=== PATIENT | female | born 1940 | race Caucasian/White ===

== ENCOUNTER → 2016-04-23 | Outpatient (CLI) | payer MEDICARE, BC ==
[~2016-04-23] MED LIST: ASPIRIN E.C. 8181 MG PO; DOXYCYCLINE100 MG PO; GLUCOPHAGE1000 MG PO; GLUCOPHAGE500 MG/TAB PO; HCTZ 25MG25 MG PO; HCTZ12.5TAB PO; LIPITOR 10MG10 MG PO; ZOFRAN 4MG T4 MG/TAB PO
== END ==
LOC: SUN.DIA 13:30
DX: E11.65 Type 2 diabetes mellitus with hyperglycemia (principal); Z79.84 Long term (current) use of oral hypoglycemic drugs; Z68.30 Body mass index [BMI] 30.0-30.9, adult; Z71.3 Dietary counseling and surveillance; E78.5 Hyperlipidemia, unspecified; I10 Essential (primary) hypertension

== ENCOUNTER 2016-06-28 08:34 | Emergency (ER) | payer MEDICARE, BC ==
[~2016-06-28] VITALS: Ht 165.1 cm; Wt 82.7 kg
[~2016-06-28 08:34] MED LIST changes: -ASPIRIN E.C. 8181 MG PO; -GLUCOPHAGE1000 MG PO; -GLUCOPHAGE500 MG/TAB PO; -HCTZ12.5TAB PO
[2016-06-28 08:35] VITALS: TEMP 97.9
[2016-06-28] MEDS ORDERED: GLUCOPHAGE500 MG/TAB PO (08:44)
[2016-06-28] MEDS ORDERED: GLUCOPHAGE1000 MG PO (08:45)
[2016-06-28] MEDS ORDERED: HCTZ12.5TAB PO (08:46)
[2016-06-28] MEDS ORDERED: ASPIRIN E.C. 8181 MG PO (08:46)
[2016-06-28 09:16] LABS: BASO % 0.8 % (0.0-2.0); EOS # 0.1 (0.0-0.7); EOS % 1.3 % (0-4.0); GRAN # 2.2 (1.4-6.5); GRAN % 55.3 % (42.2-75.2); HEMATOCRIT 39.8 % (37.0-47.0); HEMOGLOBIN 13.4 g/dl (12.5-16.0); LYMPH # 1.3 (1.2-3.4); LYMPH % 33.9 % (20.0-51.0); MEAN CELL VOLUME 91 fl (80.0-100.0); MEAN CORPUSCULAR HEMOGLOBIN 31 pg (27.0-31.0); MEAN CORPUSCULAR HGB CONC 34 g/dl (33.0-37.0); MEAN PLATELET VOLUME 9.4 fl (7.4-10.4); MONO # 0.3 (0.1-0.6); MONO % 8.4 % (1.7-9.3); PLATELET COUNT 194 K/mm3 (130-400); RED BLOOD COUNT 4.38 M/mm3 (4.10-5.30); REDCELL DISTRIBUTION WIDTH-CV 12.9 % (11.5-14.5); WHITE BLOOD COUNT 3.9 K/mm3 (4.8-10.8)
[2016-06-28 09:27] LABS: ADJUSTED CALCIUM 9.8 mg/dL (8.4-10.2); ALANINE AMINOTRANSFERASE 16 U/L (9-52); ALBUMIN 4.1 gm/dL (3.5-5.0); ALKALINE PHOSPHATASE 82 U/L (50-136); ANION GAP 17 mmol/L (7-16); BLOOD UREA NITROGEN 18 mg/dL (7-17); CALCIUM 9.9 mg/dL (8.4-10.2); CARBON DIOXIDE 22 mmol/L (22-30); CHLORIDE 104 mmol/L (98-107); CREATININE, serum 0.68 mg/dL (0.52-1.25); GLUCOSE 119 mg/dL (74-106); POTASSIUM 3.2 mmol/L (3.4-5.0); SODIUM 144 mmol/L (137-145); TOTAL PROTEIN 7.3 gm/dL (6.4-8.2)
[2016-06-28 09:28] LABS: C-REACTIVE PROTEIN < 0.5 mg/dL (0.0-0.9)
[2016-06-28 09:39] LABS: TROPONIN-I < 0.012 ng/mL (0.000-0.034)
[2016-06-28 10:15] VITALS: BP 143/87; PULSE 73
== END 2016-06-28 10:24 | disposition home or self-care (01) ==
LOC: COL.ER 08:34
PROVIDERS: Emergency Medicine
DX: R42 Dizziness and giddiness (principal); E11.9 Type 2 diabetes mellitus without complications; I10 Essential (primary) hypertension; Z79.84 Long term (current) use of oral hypoglycemic drugs
CPT/HCPCS: J2060; J2405; J7030

== ENCOUNTER → 2016-08-07 | Outpatient (CLI) | payer MEDICARE, BC ==
[~2016-08-07] MED LIST changes: +ASPIRIN E.C. 8181 MG PO; +GLUCOPHAGE1000 MG PO; +GLUCOPHAGE500 MG/TAB PO; +HCTZ12.5TAB PO
== END ==
LOC: MC.RAD 13:16
DX: Z12.31 Encounter for screening mammogram for malignant neoplasm of breast (principal)

== ENCOUNTER → 2017-04-25 | Outpatient (CLI) | payer MEDICARE, BC | LOC: COL.VAS 10:45 | DX: I08.1 Rheumatic disorders of both mitral and tricuspid valves (principal) ==

== ENCOUNTER → 2017-10-06 | Outpatient (CLI) | payer MEDICARE, BC | LOC: MC.RAD 10:00 | DX: Z12.31 Encounter for screening mammogram for malignant neoplasm of breast (principal) ==

== ENCOUNTER → 2018-02-18 | Outpatient (CLI) | payer MEDICARE, BC | LOC: COL.VAS 02-16 12:30 | DX: M79.604 Pain in right leg (principal) ==

== ENCOUNTER → 2018-10-02 | Outpatient (CLI) | payer MEDICARE, BC | LOC: COL.RAD 15:00 | DX: Z12.11 Encounter for screening for malignant neoplasm of colon (principal); K57.30 Diverticulosis of large intestine without perforation or abscess without bleeding ==

== ENCOUNTER → 2018-10-20 | Outpatient (CLI) | payer MEDICARE, BC | LOC: MC.RAD 09:20 | DX: Z12.31 Encounter for screening mammogram for malignant neoplasm of breast (principal) ==

== ENCOUNTER → 2019-09-22 | Outpatient (CLI) | payer MEDICARE, BC | LOC: COL.RAD 12:12 | DX: M48.061 Spinal stenosis, lumbar region without neurogenic claudication (principal); M41.86 Other forms of scoliosis, lumbar region; S33.140A Subluxation of L4/L5 lumbar vertebra, initial encounter; S33.39XA Dislocation of other parts of lumbar spine and pelvis, initial encounter; S33.110A Subluxation of L1/L2 lumbar vertebra, initial encounter; S33.120A Subluxation of L2/L3 lumbar vertebra, initial encounter ==

== ENCOUNTER → 2019-12-16 | Outpatient (CLI) | payer MEDICARE, BC | LOC: MC.RAD 09:45 | DX: Z12.31 Encounter for screening mammogram for malignant neoplasm of breast (principal) ==

== ENCOUNTER 2020-04-24 12:31 | Inpatient (IN) | payer MEDICARE, BC ==
[~2020-04-24] VITALS: Ht 165.1 cm; Wt 90.6 kg
[2020-04-24 12:57] LABS: ARTERIAL BLD GAS O2 SATURATION 95.8 % (92-100); ARTERIAL BLD GAS TCO2 CT 26.3; ARTERIAL BLOOD GAS BASE EXCESS 2.8 (-2-2); ARTERIAL BLOOD GAS HCO3 25.3 meq/L (22-26); ARTERIAL BLOOD GAS PCO2 32.7 mmHg (35-45); ARTERIAL BLOOD GAS PO2 80.2 mmHg (80-100); ARTERIAL BLOOD GAS pH 7.51 (7.35-7.45)
[2020-04-24 13:00] LABS: BASO % 0.4 % (0.0-2.0); EOS % 0.2 % (0-4.0); GRAN % 61.9 % (42.2-75.2); HEMATOCRIT 39.1 % (37.0-47.0); HEMOGLOBIN 13.4 g/dl (12.5-16.0); LYMPH # 1.3 (1.2-3.4); LYMPH % 26.4 % (20.0-51.0); MEAN CELL VOLUME 91 fl (80.0-100.0); MEAN CORPUSCULAR HEMOGLOBIN 31 pg (27.0-31.0); MEAN CORPUSCULAR HGB CONC 34 g/dl (33.0-37.0); MEAN PLATELET VOLUME 9.4 fl (7.4-10.4); MONO # 0.5 (0.1-0.6); MONO % 10.5 % (1.7-9.3); PLATELET COUNT 205 K/mm3 (130-400); RED BLOOD COUNT 4.32 M/mm3 (4.10-5.30); REDCELL DISTRIBUTION WIDTH-CV 13.8 % (11.5-14.5)
[2020-04-24 13:12] LABS: ALANINE AMINOTRANSFERASE 22 U/L (4-34); ALKALINE PHOSPHATASE 116 U/L (50-136); ANION GAP 11 mmol/L (7-16); AST,SGOT 37 U/L (15-37); BILIRUBIN,TOTAL 1.1 mg/dL (0.0-1.0); BLOOD UREA NITROGEN 18 mg/dL (7-17); CARBON DIOXIDE 29 mmol/L (22-30); CHLORIDE 95 mmol/L (98-107); CREATINE KINASE 68 U/L (30-135); GLUCOSE 113 mg/dL (74-106); SODIUM 135 mmol/L (137-145); TOTAL PROTEIN 7.2 gm/dL (6.4-8.2)
[2020-04-24 13:18] LABS: POTASSIUM 2.9 mmol/L (3.4-5.0)
[2020-04-24 13:24] LABS: TROPONIN-I < 0.012 ng/mL (0.000-0.035)
[2020-04-24 20:50] VITALS: BP 132/59; PULSE 98; TEMP 98.1
[2020-04-24 21:05] VITALS: BP 137/59; PULSE 98; TEMP 98.1
[2020-04-25] VITALS (7 sets, daily range): BP systolic 118–145; BP diastolic 57–90; PULSE 71–87; TEMP 97.1–97.8
--- NOTE | 2020-04-25 07:45 | NUR ---
Shift assessment complete. Pt denies SOA and pain. Reports mild fatigue, improved since S/S began. Currently on 1L O2 NC with sats stable. Heart RRR, crackles heard over left lower lobes, A&Ox4. 3+ edema to BLE. Pt refuses MARCEL hose and elevation of lower extremities at this time. Incentive spirometer provided and pt educated on use. Denies other needs. Call light in reach.
[2020-04-25 08:03] LABS: HEMOGLOBIN 12.2 g/dl (12.5-16.0); MEAN CELL VOLUME 90 fl (80.0-100.0); MEAN CORPUSCULAR HEMOGLOBIN 31 pg (27.0-31.0); MEAN CORPUSCULAR HGB CONC 35 g/dl (33.0-37.0); MEAN PLATELET VOLUME 10.2 fl (7.4-10.4); PLATELET COUNT 213 K/mm3 (130-400); RED BLOOD COUNT 3.93 M/mm3 (4.10-5.30); REDCELL DISTRIBUTION WIDTH-CV 13.4 % (11.5-14.5)
[2020-04-25 08:09] LABS: HEMATOCRIT 35.3 % (37.0-47.0)
[2020-04-25 08:17] LABS: CALCIUM 8.6 mg/dL (8.4-10.2); CREATININE, serum 0.63 (0.52-1.25); POTASSIUM 3.6 mmol/L (3.4-5.0)
--- NOTE | 2020-04-25 16:26 | NUR ---
Bale Tie Machine Operator, Merrick from the patient's PCP, Dr. Littlejohn contacted this SW. She states that the patient maybe needing some extra help such as home health at at discharge. Merrick faxed over [facility]- paperwork for the patient, placed in the chart. SW contacted the patient via room phone to complete intake. The patient lives alone in [place]. The patient denies DME use and is independent. The patient's PCP is Dr. Littlejohn and [place] [facility] The patient picks up her own medications. The patient plans to return home when he ready. JOSE MANUEL discussed the benefits of home health. She states that her late had home health and she knows about it. She declined home health services at this time. JOSE MANUEL contacted the patient's son, Lori. He states he is agreeable with the patient returning home if she is stable to do so and she wants to. PT/OT ordered.
--- NOTE | 2020-04-25 20:47 | NUR ---
Individual denied pain and or discomfort. VSS. No s/s distress noted.
--- NOTE | 2020-04-25 21:41 | NUR ---
Individual PIV infiltrated. removed and attempted x's 2.
--- NOTE | 2020-04-26 11:19 | NUR ---
PATIENT DID NOT QUALIFY FOR HOME OXYGEN. SP02 IS 94% WHILE AMBULATING ON TOYA AIR.
[2020-04-26 12:17] VITALS: BP 120/61; PULSE 81; TEMP 97.8
--- NOTE | 2020-04-26 12:28 | NUR ---
Pt is currently on RA. Assessment has been completed, and pt should be able to discharge after BMP & CBC is drawn.
[2020-04-26] MEDS ORDERED: OMNICEF 300MG300 MG PO (12:34)
[2020-04-26] MEDS ORDERED: DECADRON6 MG PO (12:35)
[2020-04-26] MEDS ORDERED: DOXYCYCLINE HY100 MG PO (12:35)
[2020-04-26] MEDS ORDERED: LASIX 20MG TABL20 MG PO (12:36)
[2020-04-26 13:46] LABS: BASO % 0.2 % (0.0-2.0); EOS % 0.2 % (0-4.0); GRAN # 3.1 (1.4-6.5); GRAN % 63.4 % (42.2-75.2); HEMATOCRIT 36.7 % (37.0-47.0); HEMOGLOBIN 12.4 g/dl (12.5-16.0); LYMPH # 1.2 (1.2-3.4); LYMPH % 24.2 % (20.0-51.0); MEAN CELL VOLUME 91 fl (80.0-100.0); MEAN CORPUSCULAR HEMOGLOBIN 31 pg (27.0-31.0); MEAN CORPUSCULAR HGB CONC 34 g/dl (33.0-37.0); MEAN PLATELET VOLUME 9.7 fl (7.4-10.4); MONO # 0.6 (0.1-0.6); MONO % 11.4 % (1.7-9.3); PLATELET COUNT 282 K/mm3 (130-400); RED BLOOD COUNT 4.02 M/mm3 (4.10-5.30); REDCELL DISTRIBUTION WIDTH-CV 13.4 % (11.5-14.5)
--- NOTE | 2020-04-26 14:59 | NUR ---
The patient is to discharge home today, 04/26. JOSE MANUEL discussed the benefits of home health and she declined. The patient does not qualify for oxygen. The patient's friend, Korin will provide transporation at discharge. JOSE MANUEL attempted to contact the patient's son, Lori with update, left message. JOSE MANUEL attempted to contact JOSE MANUEL Sin with Dr. Littlejohn's office to provide update, left message. There are no additional needs at this time.
== END 2020-04-26 15:50 | disposition home or self-care (01) | DRG 177 ==
LOC: COL.ER 12:31 → MEDICAL 13:43
PROVIDERS: Emergency Medicine; Physician Assistant; ADMIT Student in an Organized Health Care Education/Training Program
DX: U07.1 COVID-19 (principal); J96.01 Acute respiratory failure with hypoxia; J90 Pleural effusion, not elsewhere classified; E78.5 Hyperlipidemia, unspecified; E87.6 Hypokalemia; M54.30 Sciatica, unspecified side; E11.9 Type 2 diabetes mellitus without complications; I10 Essential (primary) hypertension; Z90.710 Acquired absence of both cervix and uterus; Z90.89 Acquired absence of other organs; Z79.84 Long term (current) use of oral hypoglycemic drugs; Z79.82 Long term (current) use of aspirin
CPT/HCPCS: 99222-AI; 99233-AI; 99239; A9284; J0360; J0696; J1100; J1650; J1815; J7030; J8540; Q9967

== ENCOUNTER → 2020-10-11 | Outpatient (CLI) | payer MEDICARE, BC ==
[~2020-10-11] MED LIST changes: +DECADRON6 MG PO; +DOXYCYCLINE HY100 MG PO; +LASIX 20MG TABL20 MG PO; +OMNICEF 300MG300 MG PO
== END ==
LOC: COL.VAS 13:10
DX: R60.0 Localized edema (principal)

== ENCOUNTER → 2021-01-22 | Outpatient (CLI) | payer MEDICARE, BC | LOC: MC.RAD 10:15 | DX: Z12.31 Encounter for screening mammogram for malignant neoplasm of breast (principal); N63.10 Unspecified lump in the right breast, unspecified quadrant ==

== ENCOUNTER → 2021-01-30 | Outpatient (CLI) | payer MEDICARE, BC | LOC: MC.RAD 01-25 08:30 | DX: N63.10 Unspecified lump in the right breast, unspecified quadrant (principal) ==

== ENCOUNTER 2021-07-24 05:53 | Observation (INO) | payer MEDICARE, BC ==
[~2021-07-24] VITALS: Wt 96.4 kg
[2021-07-24 06:20] LABS: BASO % 0.3 % (0.0-2.0); EOS % 0.3 % (0.0-4.0); GRAN # 6.4 K/mm3 (1.4-6.5); GRAN % 81.3 % (42.2-75.2); HEMATOCRIT 42.7 % (37.0-47.0); HEMOGLOBIN 14.4 g/dl (12.5-16.0); LYMPH # 0.9 K/mm3 (1.2-3.4); LYMPH % 11.8 % (20.0-51.0); MEAN CELL VOLUME 91 fl (80.0-100.0); MEAN CORPUSCULAR HEMOGLOBIN 31 pg (27-31); MEAN CORPUSCULAR HGB CONC 34 g/dl (33.0-37.0); MEAN PLATELET VOLUME 9.1 fl (7.4-10.4); MONO # 0.5 K/mm3 (0.1-0.6); MONO % 5.9 % (1.7-9.3); PLATELET COUNT 213 K/mm3 (130-400); RED BLOOD COUNT 4.67 M/mm3 (4.10-5.30); REDCELL DISTRIBUTION WIDTH-CV 13.4 % (11.5-14.5)
[2021-07-24 06:42] LABS: ALBUMIN 3.8 gm/dL (3.4-4.8); BILIRUBIN,TOTAL 0.8 mg/dL (0.2-1.2); CALCIUM 9.1 mg/dL (8.4-10.2); CREATININE, serum 1.04 mg/dL (0.57-1.11); POTASSIUM 3.7 mmol/L (3.5-4.5)
[2021-07-24 07:50] LABS: COLLECTION METHOD CLEAN CATCH
[2021-07-24 07:56] LABS: MUCOUS Present (NOT PRESENT); PH 6 (5-8); SQUAMOUS EPITHELIAL 0-2 /hpf (0-10); URINE APPEARANCE Hazy (CLEAR/HAZY); URINE BACTERIA None Seen /hpf (NONE SEEN); URINE BILIRUBIN Negative (NEGATIVE); URINE BLOOD 2+ (NEGATIVE); URINE COLOR Yellow (YELLOW); URINE GLUCOSE 1+ (NEGATIVE); URINE KETONE Negative (NEGATIVE); URINE LEUKOCYTE ESTERASE Negative (NEGATIVE); URINE NITRATE Negative (NEGATIVE); URINE PROTEIN(semi-quant) Negative (NEGATIVE); URINE UROBILINOGEN Negative (NEGATIVE)
[2021-07-24] MEDS ORDERED: GLUCOPHAGE500 MG/TAB PO (07:57)
[2021-07-24] MEDS ORDERED: MICROZIDE12.5 MG PO (07:58)
[2021-07-24] MEDS ORDERED: TYLENOL 325MG325 MG PO (07:59)
[2021-07-24] MEDS ORDERED: ADVIL200 MG PO (07:59)
[2021-07-24] MEDS ORDERED: OMEGA-3 1000 MG1 CAP PO (08:00)
[2021-07-24 09:44] VITALS: BP 143/82; PULSE 72; TEMP 98.1
--- NOTE | 2021-07-24 09:49 | NUR ---
Herbicide Sprayer met with patient and her friend, Isi Ochoa to discuss discharge planning. Patient lives alone in [place] and sees Dr. Patricia Littlejohn for primary care. Patient obtains medications from [facility] with no difficulties and does not use any DME. Patient is independent with ADLS and plans to return home at time of discharge. Patient has DPOA-HC in EMR which designates her three sons: Teodoro, Derrek, and Lori after her late , Anand. Patient reports she has notified her sons that she is hospitalized. Discharge Plan: Home
--- NOTE | 2021-07-24 11:00 | NUR ---
PATIENT RECIEVED FROM ED DEPT IN STABLE CONDITION. DEBURRING AND TOOLING MACHINE OPERATOR STARTED PER ORDERS. PATIENT HAS NO COMPLAINTS AT THIS TIME. IND AT HOME AND CAN AMBULATE. ENCOURAGED TO ASK FOR ASSIST WITH THIS. VITALS WNL. AWAITING SURGERY SCHEDULED FOR 6PM TODAY.
[2021-07-24 11:32] VITALS: BP 132/68; PULSE 63; TEMP 98.2
[2021-07-24 15:57] VITALS: BP 134/68; PULSE 70; TEMP 98.1
--- NOTE | 2021-07-24 16:43 | NUR ---
PATIENT TAKEN TO SURGERY IN STABLE CONDITION. PAIN WELL CONTROLLED AT THIS TIME. INORGANIC CHEMICAL TECHNICIAN PUMP DISCONNECTED AND REMAINING NARCOTIC WASTED WITH ANOTHER NURSE.
[2021-07-25] VITALS: BP 133/48; PULSE 83
[2021-07-25 01:09] VITALS: BP 133/48; PULSE 83
[2021-07-25 01:25] VITALS: BP 130/42; PULSE 67; TEMP 98.2
[2021-07-25 04:28] VITALS: BP 130/60; PULSE 62; TEMP 97.4
--- NOTE | 2021-07-25 04:58 | NUR ---
Patient back to the floor at approximately 1845. Postop vitals were WNL and ful body assessment completed. Patients pain has be adequately control thus far this shift. Patient has voided since arrival to the floor. Pt is A&Ox3 and pleasant. No other complaints thus far this shift, call light within reach.
[2021-07-25 07:29] VITALS: BP 120/62; PULSE 63; TEMP 98.1
[2021-07-25 11:17] VITALS: BP 133/50; PULSE 71; TEMP 97.6
--- NOTE | 2021-07-25 14:55 | NUR ---
DISCHARGE INSTRUCTIONS REWVIEWED WITH PT, QUESTIONS ANSWERED. PT LEFT UNIT AMBULATORY.
== END 2021-07-25 15:00 | disposition home or self-care (01) ==
LOC: COL.ER 05:53 → SURG 07:33
PROVIDERS: Emergency Medicine; ADMIT Urology
DX: N20.1 Calculus of ureter (principal)
CPT/HCPCS: C1769; C2617; G0378; J0690; J0696; J1100; J1170; J1200; J1885; J2270; J2405; J2704; J3010; J7030; Q9967

== ENCOUNTER → 2021-08-06 | Outpatient (CLI) | payer MEDICARE, BC ==
[~2021-08-06] MED LIST changes: +ADVIL200 MG PO; +KLOR-CON SPRIN10 MEQ PO; +MICROZIDE12.5 MG PO; +MIRALAX PA17 GM/Dose PO; +MOBIC 7.5MG7.5 MG PO; +MYCELEX10 MG/TAB MM; +NEURONTIN100 MG/CAP PO; +OMEGA-3 1000 MG1 CAP PO; +TYLENOL 325MG325 MG PO
== END ==
LOC: MC.RAD 10:46
DX: N63.10 Unspecified lump in the right breast, unspecified quadrant (principal)

== ENCOUNTER 2021-08-08 13:52 | Inpatient (IN) | payer MEDICARE, BC ==
[~2021-08-08] VITALS: Ht 167.6 cm; Wt 95.5 kg
[2021-08-08] VITALS (9 sets, daily range): BP systolic 133–170; BP diastolic 63–91; PULSE 77–99; TEMP 97.7–98.4
[~2021-08-08 13:52] MED LIST changes: -KLOR-CON SPRIN10 MEQ PO; -MIRALAX PA17 GM/Dose PO; -MOBIC 7.5MG7.5 MG PO; -MYCELEX10 MG/TAB MM; -NEURONTIN100 MG/CAP PO
[2021-08-08] MEDS ORDERED: MOBIC 7.5MG7.5 MG PO (16:16)
--- NOTE | 2021-08-08 21:20 | NUR ---
PT FEELS LIKE SHE IS IN A LOT OF PAIN AND DOES NOT WANT TO GO HOME NOW. ROXICONDONE GIVEN FOR PAIN. VITALS A BIT ELEVATED FROM BEFORE. PLACED ON O2 VIA NC BECAUSE O2 STATS DROPPED INTO HIGH 80'S. I FEEL THAT PT IS HOLDING HER BREATH BECAUSE OF THE PAIN. WILL CONTACT THE PHYSICIAN. WILL CONTINUE TO MONITOR.
[2021-08-09 04:30] VITALS: BP 104/54; PULSE 72; TEMP 97.8
--- NOTE | 2021-08-09 06:30 | NUR ---
PT ARRIVED TO THE MEDICAL FLOOR FROM PACU AT 1935HRS TO ROOM 253. PT A&O X 4; VSS; O2 TO RA (NOTE: A COUPLE OF HOURS LATER PT PLACED ON 3L OF O2 BECAUSE HER O2 STATS DROPPED TO HIGH 80'S). PT DENIED CHEST PAIN, N,V,D, OR DIZZINESS. PT COMPLAINED OF ABD & BACK PAIN. PT GIVEN ROXICODONE FOR PAIN. PAIN MED WAS EFFECTIVE THE FIRST TIME I GIVE MED. THE SECOND TIME I GAVE PAIN MED, PT NEEDED SECOND DOSE ABOUT AN HOUR LATER FOR PAIN RELIEF. PT WENT BACK AND FORTH ABOUT STAYING, AND FINALLY DECIDED TO STAY. ADMISSIONS ASSESSMENT AND MED REC COMPLETE. PT ORIENTED TO ROOM AND HOSPITAL POLICY. POC DISCUSSED WITH PT. PT VERBALIZED UNDERSTANDING. ALL QUESTIONS AND CONCERNS ADDRESSED. PT EXPRESSED NO ADDITIONAL NEEDS AT THIS TIME. CALL LIGHT WITHIN REACH.
[2021-08-09 07:26] VITALS: BP 111/56; PULSE 65; TEMP 97.8
--- NOTE | 2021-08-09 09:24 | NUR ---
Shift assessment performed. VSS. Patient A&O. Patient currently requiring 3L of O2 via nasal cannula. Sating 95%. Patient denies any pain, but states that she is having some nausea. Patient has not eaten since yesterday. PO intake encouraged. Tolerating without vomiting. VSS. Patient A&O. Patient denies any further pain, discomfort, SOA, or further needs at this time. Call light in reach.
--- NOTE | 2021-08-09 10:12 | NUR ---
Initial visit; Patient thanked Public Health Specialist for looking in on her and visiting and offering God's blessings.
--- NOTE | 2021-08-09 10:53 | NUR ---
hatchery worker met with patient to discuss discharge plan. Patient currently lives at home alone in [place]. She reports to being fully independent with his ADL's and does not utilize any DME to assist with mobility. Patient reports to no home oxygen needs. PCP is Dr. Littlejohn and she utilizes [facility] for medications. Patient reports that she does have a DPOA-HC established and that her 3 sons are listed on it. States " all 3 of them have a copy". Patient states that all of her sons have a copy. Patient reports that her son Lori Crouch [phone] is the closest one living to her but is hard to get ahold of. She states that her other son Derrek Crouch [phone] who lives in [place] is much easier to get ahold of. Patient states that her friend Andrés Dowell [phone] is going to pick her up this time but asks about how to set up [employer] as recurring. I informed the patient that i was unaware of [employer] offering this but that i would look into it for her. Benigno has no other questions at this time. Discharge plan: Home
[2021-08-09 11:10] VITALS: BP 122/74; PULSE 83; TEMP 98
--- NOTE | 2021-08-09 13:38 | NUR ---
Patient continues to experience nausea, and has had one episode of emesis. Dr Forbes contacted, who started patient on IV fluids and PRN zofran. Call light in reach.
[2021-08-09 15:56] VITALS: BP 124/59; PULSE 95; TEMP 97.7
--- NOTE | 2021-08-09 19:25 | NUR ---
Patient given 2 doses of zofran this shift. Patient states that this has helped "a little bit." Fluids running as ordered. Patient denies any pain, discomfort, SOA, of further needs at this time. VSS. Patient A&O. Leidy contacted regarding starting patient's home medications. Hospitalist consulted.
[2021-08-09 20:36] LABS: HEMATOCRIT 38.7 % (37.0-47.0); HEMOGLOBIN 13.3 g/dl (12.5-16.0); MEAN CELL VOLUME 90 fl (80.0-100.0); MEAN CORPUSCULAR HEMOGLOBIN 31 pg (27-31); MEAN CORPUSCULAR HGB CONC 34 g/dl (33.0-37.0); MEAN PLATELET VOLUME 9.6 fl (7.4-10.4); PLATELET COUNT 147 K/mm3 (130-400); RED BLOOD COUNT 4.28 M/mm3 (4.10-5.30); REDCELL DISTRIBUTION WIDTH-CV 13.8 % (11.5-14.5)
[2021-08-09 20:40] VITALS: BP 113/53; PULSE 101; TEMP 98.8
[2021-08-09 20:57] LABS: ALBUMIN 3.1 gm/dL (3.4-4.8); ALKALINE PHOSPHATASE 102 U/L (40-150); ANION GAP 12 mmol/L (7-16); AST,SGOT 18 U/L (5-34); BAND 13 % (0-10); BILIRUBIN,TOTAL 1.5 mg/dL (0.2-1.2); BLOOD UREA NITROGEN 22 mg/dL (10-20); CALCIUM 8.6 mg/dL (8.4-10.2); CARBON DIOXIDE 21 mmol/L (23-31); CHLORIDE 103 mmol/L (98-107); CREATININE, serum 1.06 mg/dL (0.57-1.11); GLUCOSE 271 mg/dL (70-99); LYMPHOCYTE 6 % (20.0-51.0); MAGNESIUM 1.6 mg/dL (1.6-2.6); NEUTROPHILS 76 % (42.0-75.2); PHOSPHOROUS 2.4 mg/dL (2.3-4.7); POTASSIUM 3.6 mmol/L (3.5-4.5); SODIUM 136 mmol/L (136-145); TOTAL PROTEIN 6.2 gm/dL (6.2-8.1)
[2021-08-09 20:59] LABS: ALANINE AMINOTRANSFERASE < 6 U/L (0-55)
[2021-08-10 00:23] LABS: COLLECTION METHOD CLEAN CATCH
[2021-08-10 00:24] VITALS: BP 138/60; PULSE 104; TEMP 98.2
[2021-08-10 00:40] LABS: MUCOUS Present (NOT PRESENT); PH 5 (5-8); SQUAMOUS EPITHELIAL 0-2 /hpf (0-10); URINE APPEARANCE Hazy (CLEAR/HAZY); URINE BACTERIA Moderate /hpf (NONE SEEN); URINE BILIRUBIN Negative (NEGATIVE); URINE BLOOD 2+ (NEGATIVE); URINE COLOR Yellow (YELLOW); URINE GLUCOSE 1+ (NEGATIVE); URINE KETONE Negative (NEGATIVE); URINE LEUKOCYTE ESTERASE Trace (NEGATIVE); URINE NITRATE Negative (NEGATIVE); URINE PROTEIN(semi-quant) 3+ (NEGATIVE); URINE UROBILINOGEN Negative (NEGATIVE)
[2021-08-10 03:41] VITALS: BP 123/54; PULSE 93; TEMP 98.6
--- NOTE | 2021-08-10 06:32 | NUR ---
ASSESSMENT COMPLETE FOR THIS SHIFT. PT RESTING IN HER RECLINER WATCHING TV. PT COMPLAINED OF BACK PAIN SHE RATED AN 8, HOWEVER PT WANTED TO WAIT ON TAKING ANY PAIN MEDICATION, UNTIL SHE, "HAD NO CHOICE," BECAUSE SHE SAID PAIN MEDICATION CAUSE HER LEGS TO SWELL. A LITTLE AFTER 0100HRS, PT STATED THE PAIN WAS TOO MUCH FOR HER TO BEAR, AND THAT SHE HAD TO HAVE SOMETHING. PT GIVEN ROXICODONE FOR PAIN. PAIN MEDICATION WAS EFFECTIVE FOR PT'S PAIN. PT DENIED PALPITATIONS, SOB, N,V,D OR DIZZINESS. PT SPOKE WITH HOSPITALIST. CT ORDERED. PT TAKEN AND RETURNED FROM CT. PT FOUND TO HAVE PYELONEPHRITIS. ABX ORDERED AND STARTED WITH NO ISSUES. PT EXPRESSED NO OTHER NEEDS AT THIS TIME. CALL LIGHT WITHIN REACH.
[2021-08-10 08:20] VITALS: BP 122/64; PULSE 93; TEMP 99
[2021-08-10 09:51] LABS: HEMATOCRIT 38.4 % (37.0-47.0); HEMOGLOBIN 13.1 g/dl (12.5-16.0); MEAN CELL VOLUME 91 fl (80.0-100.0); MEAN CORPUSCULAR HEMOGLOBIN 31 pg (27-31); MEAN CORPUSCULAR HGB CONC 34 g/dl (33.0-37.0); MEAN PLATELET VOLUME 10.2 fl (7.4-10.4); PLATELET COUNT 126 K/mm3 (130-400)
[2021-08-10 10:03] LABS: CALCIUM 8.6 mg/dL (8.4-10.2); CREATININE, serum 1.18 mg/dL (0.57-1.11); POTASSIUM 3.5 mmol/L (3.5-4.5)
[2021-08-10 10:37] LABS: BAND 5 % (0-10); LYMPHOCYTE 7 % (20.0-51.0); NEUTROPHILS 83 % (42.0-75.2)
[2021-08-10 10:39] LABS: PLATELET ESTIMATE DECREASED (NORMAL)
--- NOTE | 2021-08-10 11:32 | NUR ---
Scheduled medications given. Shift assessment performed. Fluids running as ordered. Patient currently requiring 2L of O2 via nasal cannula. When asked about pain, patient stated that she was having sharp pain in her back rated a 6/10. As she was describing this pain, patient was drifting in and out of sleep. Patient fully oriented. Patient denies any further pain, discomfort, SOA, or further needs at this time. Call light in reach.
[2021-08-10 12:02] VITALS: BP 129/70; PULSE 97; TEMP 97.9
[2021-08-10 17:13] VITALS: BP 154/69; PULSE 102; TEMP 97.5
--- NOTE | 2021-08-10 18:37 | NUR ---
Patient has had an ok day. PRN pain medication given once this shift. Patient pulled IV this shift, unable to restart new IV. HUGH Burrows notified. Will contact head housekeeper to attempt to place. Oncoming shift aware. Patient refusing insulin. States that she does not take it at home and does not want to take it here. Education on blood sugar control given. Patient still refuses. Patient currently resting in her chair. Respirations even and unlabored. VSS. Patient A&O. Call light in reach.
[2021-08-10 19:54] VITALS: BP 142/73; PULSE 105; TEMP 98.7
[2021-08-11 00:31] VITALS: BP 154/83; PULSE 110; TEMP 98
[2021-08-11 03:53] VITALS: BP 145/81; PULSE 103; TEMP 98.2
[2021-08-11 07:47] VITALS: BP 129/72; PULSE 98; TEMP 97.9
--- NOTE | 2021-08-11 10:04 | NUR ---
PT ALERT AND ORIENTED IN ROOM, DROWSY. NEEDING SEVERAL CUES TO EAT BREAKFAST. PT ABLE TO ANSWER QUESTIONS, RESPOND TO VERBAL CUES, EXPRESS NEEDS. PT ASSESSMENT COMPLETED TO BEST OF ABILITY. NOTIFIED DR. TELLEZ OF EDEMA IN ALL EXTREMITIES, PAUSED FLUIDS PER VERBAL INSTRUCTION UNTIL FURTHER ORDERS RECEIVED. CALL LIGHT WITHIN REACH.
--- NOTE | 2021-08-11 10:31 | NUR ---
PT DAUGHTER CAME OUT OF ROOM STATING PT JALYN, ASSESSED PT, ABLE TO CLEAR AIRWAY, STAYED WITH PT UNTIL AFFIRMED OKAY, LEFT PT IN UPRIGHT POSITION, CALL LIGHT WITHIN REACH.
--- NOTE | 2021-08-11 10:42 | NUR ---
rounded on pt, still eating breakfast, no needs at this time.
--- NOTE | 2021-08-11 11:21 | NUR ---
Initial visit; Patient thanked Hand Icer for looking in on her and offering God's blessings and keeping her in Hand Icer's prayers.
[2021-08-11 11:43] VITALS: BP 128/70; PULSE 90; TEMP 97.8
--- NOTE | 2021-08-11 12:52 | NUR ---
Pt tolerating 2L oxygen well, baseline room air. Titrated down to 1L tolerated at 95%, titrated to room air, spo2 remains at 94%.
--- NOTE | 2021-08-11 12:59 | NUR ---
NOTIFIED DR. TELLEZ OF PT TOLERATING ROOM AIR.
--- NOTE | 2021-08-11 13:04 | NUR ---
NOTIFIED DR. ELIZALDE'S OFFICE OF PT BEING DC TODAY, CLEARED BY HOSPITALIST. LEFT MESSAGE FOR DR. ELIZALDE TO CALL BACK WITH CONCERNS.
--- NOTE | 2021-08-11 14:07 | NUR ---
PT AMBULATED TO BATHROOM, GAIT BELT UTILIZED. TOLERATED WELL.
[2021-08-11 16:25] VITALS: BP 123/81; PULSE 88; TEMP 98
--- NOTE | 2021-08-11 16:27 | NUR ---
PT DISCHARGING, HEALTH ASSESSMENT AND EDUCATION GIVEN TO BEST OF ABILITY. PT VERBALIZED UNDERSTANDING. PT DISCHARGE VITALS AND BLOOD GLUCOSE OBTAINED. NOTIFIED DR. MARCELO OF PAIN AND REQUEST OF [place], CONFIRMED OKAY TO GIVE D/T PT NOT DRIVING. NOTIFIED OF BLOOD GLUCOSE, OKAY TO RESUME HOME MEDICATIONS TONIGHT.
== END 2021-08-11 16:53 | disposition home or self-care (01) | DRG 690 ==
LOC: SDCO 13:52 → MEDICAL 19:30 → SDCO 08-10 09:54 → MEDICAL 08-10 09:55
PROVIDERS: Nurse Practitioner Family; Physician Assistant; ADMIT Urology
PROC: 0TF68ZZ Fragmentation in Right Ureter, Via Natural or Artificial Opening Endoscopic (ICD-10-PCS; principal; 2021-08-08 17:00)
PROC: 0TP98DZ Removal of Intraluminal Device from Ureter, Via Natural or Artificial Opening Endoscopic (ICD-10-PCS; 2021-08-08 17:00)
DX: N10 Acute pyelonephritis (principal); E87.2 Acidosis; N20.1 Calculus of ureter; J98.11 Atelectasis; E78.5 Hyperlipidemia, unspecified; M54.30 Sciatica, unspecified side; Z79.899 Other long term (current) drug therapy; Z79.84 Long term (current) use of oral hypoglycemic drugs; Z86.16 Personal history of COVID-19; I11.9 Hypertensive heart disease without heart failure; Z66 Do not resuscitate; E11.65 Type 2 diabetes mellitus with hyperglycemia; B96.89 Other specified bacterial agents as the cause of diseases classified elsewhere; R11.2 Nausea with vomiting, unspecified
CPT/HCPCS: OP; 99222; 99232-AI; 99233-AI; C1769; J0690; J1100; J1815; J1940; J2405; J2543; J2704; J3010; J7030; J7120; Q9967

== ENCOUNTER 2021-08-14 17:17 | Inpatient (IN) | payer MEDICARE, BC ==
[~2021-08-14] VITALS: Ht 167.6 cm; Wt 87.5 kg
[~2021-08-14 17:17] MED LIST changes: +MOBIC 7.5MG7.5 MG PO
[2021-08-14 19:07] LABS: HEMOGLOBIN 12.5 g/dl (12.5-16.0); MEAN CELL VOLUME 89 fl (80.0-100.0); MEAN CORPUSCULAR HEMOGLOBIN 31 pg (27-31); MEAN CORPUSCULAR HGB CONC 34 g/dl (33.0-37.0); MEAN PLATELET VOLUME 9.5 fl (7.4-10.4); PLATELET COUNT 139 K/mm3 (130-400); RED BLOOD COUNT 4.08 M/mm3 (4.10-5.30); REDCELL DISTRIBUTION WIDTH-CV 14.2 % (11.5-14.5)
[2021-08-14 19:10] LABS: HEMATOCRIT 36.4 % (37.0-47.0)
[2021-08-14 19:15] LABS: ALBUMIN 2.1 gm/dL (3.4-4.8); CALCIUM 8.1 mg/dL (8.4-10.2); CREATININE, serum 0.75 mg/dL (0.57-1.11); TOTAL PROTEIN 5.7 gm/dL (6.2-8.1)
[2021-08-14 19:18] LABS: POTASSIUM 2.9 mmol/L (3.5-4.5)
[2021-08-14 20:22] LABS: COLLECTION METHOD CLEAN CATCH
[2021-08-14 20:22] LABS: BAND 48 % (0-10); MYELOCYTE 1 % (0-0); NEUTROPHILS 43 % (42.0-75.2)
[2021-08-14 20:38] LABS: MUCOUS Present (NOT PRESENT); PH 5 (5-8); URINE APPEARANCE Cloudy (CLEAR/HAZY); URINE BACTERIA None Seen /hpf (NONE SEEN); URINE BILIRUBIN Negative (NEGATIVE); URINE BLOOD 3+ (NEGATIVE); URINE COLOR Yellow (YELLOW); URINE GLUCOSE 1+ (NEGATIVE); URINE KETONE 1+ (NEGATIVE); URINE LEUKOCYTE ESTERASE Trace (NEGATIVE); URINE NITRATE Negative (NEGATIVE); URINE PROTEIN(semi-quant) 2+ (NEGATIVE); URINE RBC >50 /hpf (0-2); URINE UROBILINOGEN Negative (NEGATIVE)
[2021-08-14] MEDS ORDERED: ZOFRAN 4MG T4 MG/TAB PO (22:02)
[2021-08-14] MEDS ORDERED: OMNICEF 300MG300 MG PO (22:03)
--- NOTE | 2021-08-14 22:53 | NUR ---
Patient arrived to medical unit around 2224. Son accompanied patient to assist with admission. Patient transferred into bed from wheelchair with two assist. Denies having pain and discomfort at this time, but had recieved Morphine in the ER which made patient drowsy, but does awaken easily and answers all questions appropriately. Peripheral INT to right AC. Denies SOB and dyspnea. On oxygen at 2 L/min via NC at this time. ER reported that they started her on oxygen after Morphine was given. LS CTA in upper lobes, diminished in lower. HRR. Capillary refill less than 3 seconds. Non-tenting skin turgor. BSAx4. Abdomen soft and non-tender. Patient has 3+ edema BLE. Given snacks as requested. Voices no questions, needs, or concerns at this time. In bed with call light within reach. Bed alarm on.
[2021-08-14 23:22] VITALS: BP 114/50; PULSE 112; TEMP 99.9
[2021-08-15 04:45] VITALS: BP 126/58; PULSE 92; TEMP 98.7
--- NOTE | 2021-08-15 05:34 | NUR ---
Patient has been drowsy since arriving from ER. Did take oxygen off patient, and SPO2 93% on room air. Denies pain and discomfort. Voices no questions, needs, or concerns at this time. In bed with call light within reach. Bed alarm on.
[2021-08-15 06:09] LABS: MEAN CELL VOLUME 89 fl (80.0-100.0); MEAN CORPUSCULAR HEMOGLOBIN 31 pg (27-31); MEAN CORPUSCULAR HGB CONC 35 g/dl (33.0-37.0); PLATELET COUNT 121 K/mm3 (130-400); RED BLOOD COUNT 3.56 M/mm3 (4.10-5.30); REDCELL DISTRIBUTION WIDTH-CV 14.3 % (11.5-14.5)
[2021-08-15 06:11] LABS: HEMATOCRIT 31.5 % (37.0-47.0)
[2021-08-15 06:31] LABS: CALCIUM 7.7 mg/dL (8.4-10.2); CREATININE, serum 0.91 mg/dL (0.57-1.11)
[2021-08-15 06:39] LABS: POTASSIUM 2.4 mmol/L (3.5-4.5)
[2021-08-15 06:46] LABS: BAND 13 % (0-10); LYMPHOCYTE 6 % (20.0-51.0); NEUTROPHILS 80 % (42.0-75.2); SCHISTOCYTES 1+
[2021-08-15 06:47] LABS: ANISOCYTOSIS 1+
--- NOTE | 2021-08-15 07:00 | NUR ---
THE PATIENT IS AWAKE IN BED; REQUESTS THIS RN TO ASSESS HER FEET. THE PATIENT DOES HAVE PITTING EDEMA TO BOTH LOWER EXTREMETIES. AT THIS TIME, THE PATIENT DENIES PAIN. THE PATIENT HAS BEEN GIVEN 1 DOSE OF ORAL POTASSIUM IN 4 OZ OF FLUID. CONTACTED PROVIDER HUGH FUENTES TO CHANGE POTASSIUM TO K-DUR DUE TO FLUID RESTRICTION. NO OTHER CONCERNS AT THIS TIME.
[2021-08-15 08:02] VITALS: BP 141/72; PULSE 89; TEMP 97.9
--- NOTE | 2021-08-15 10:49 | NUR ---
Patient now laying in bed. Complained of feeling full and slightly nauseated. Repositioned in bed to rest.
[2021-08-15 11:55] VITALS: BP 141/68; PULSE 88; TEMP 97.9
--- NOTE | 2021-08-15 12:30 | NUR ---
THE PATIENT'S SON APPROACHED THE NURSING STATION. THE SON IS VERY UPSET REGARDING THE PATIENT'S DISCHARGE THE LAST TIME SHE WAS HERE. HE STATES THAT THE PERSON WHO PICKED HIS MOTHER UP STATES THAT HE FELT SHE WAS NOT READY FOR DISCHARGE. IT WAS NOTED THAT THE PATIENT DID NOT NUTRITIONALIST HER ANTIBIOTICS WHEN SHE DISCHARGED. THE SON STATES "SHE CANNOT TAKE A PRESCRIPTION SHE DOESN'T HAVE" THIS RN REPLIED WITH "IT WAS SENT TO THE PHARMACY VIA ESCRIPT FOR HER TO NUTRITIONALIST." THE SON GOT VERY ANGRY AND UPSET, AND STATES "I'M NOT GOING TO PLAY THESE WORD GAMES WITH YOU." THIS RN TOLD THE SON, I WILL CONTACT THE PROVIDER. DR. HURTADO WAS CONTACTED AND HE STATES THAT HE WILL COME TALK TO THE PATIENT'S FAMILY AFTER HE HAS ROUNDED HIS OTHER PATIENT'S AND COMPLETED HIS ADMISSIONS. NO OTHER CONCERNS AT THIS TIME.
--- NOTE | 2021-08-15 12:43 | NUR ---
Several visit attempts; Screw Machine Repairer left her card with patient's son, letting him and Vera know of the availability of [facility] at our hospital. He thanked Screw Machine Repairer for stopping by.
[2021-08-15 15:23] VITALS: BP 140/73; PULSE 95; TEMP 98
--- NOTE | 2021-08-15 15:47 | NUR ---
plant nursery worker met with patient to discuss discharge plan. Patient has been admitted to this facility recently for the same reason. Patients son Teodoro present at bedside. Teodoro states that after she got home she went down hill. PCP is Dr. Littlejohn and utilizes [facility] for medications. Spoke with the patient about OT recommending post acute rehab. Patient verbalizes this is notsomething she is interested in and would like to go home. States "i know about them, my was in one". Informed the patient that we will monitor how she does with PT tomorrow but that going home with HH would be the very least. Discharge plan: Unknown at this time
[2021-08-15 20:29] VITALS: BP 120/63; BP 142/76; PULSE 81; PULSE 98; TEMP 98.2; TEMP 99.1
--- NOTE | 2021-08-15 22:49 | NUR ---
CONTINUING WITH POTASSIUM REPLACEMENT PROVIDED PRN ZOFRAN PATIENT HAVING SOME NAUSEA WITH NO VOMITING ABD ROUNDED SOFT HYPOACTIVE BOWEL SOUNDS. CONTINUE ON ABX THERAPY FOR UTI. CONTINUE ON FR 1500 WILL CONTINUE TO MONITOR FOR ANY CHAGNES THROGHOUT SHIFT.
[2021-08-16] VITALS: BP 129/67; PULSE 95; TEMP 98.6
--- NOTE | 2021-08-16 04:25 | NUR ---
PATIENT NO LONGER HAVING ANY ISSUES WITH NAUSEA INFORMED MEDICATION AVALIABLE IF NEEDED. ABLE TO TOLERATE POTASSIUM REPLACMENT PENDING LABS THIS AM. PATIENT ABLE TO USE BATHROOM WITH ONE ASSIST PENDING BOWEL MOVEMENT. WILL CONTINUE TO MONITOR THROUGHOUT SHIFT.
[2021-08-16 04:54] VITALS: BP 138/71; PULSE 87; TEMP 98.7
[2021-08-16 06:12] LABS: BASO % 0.3 % (0.0-2.0); EOS % 0.5 % (0.0-4.0); GRAN % 80.4 % (42.2-75.2); HEMOGLOBIN 11.3 g/dl (12.5-16.0); LYMPH # 0.7 K/mm3 (1.2-3.4); LYMPH % 9.8 % (20.0-51.0); MEAN CELL VOLUME 91 fl (80.0-100.0); MEAN CORPUSCULAR HEMOGLOBIN 31 pg (27-31); MEAN CORPUSCULAR HGB CONC 34 g/dl (33.0-37.0); MEAN PLATELET VOLUME 10.4 fl (7.4-10.4); MONO # 0.6 K/mm3 (0.1-0.6); MONO % 8.1 % (1.7-9.3); PLATELET COUNT 146 K/mm3 (130-400); RED BLOOD COUNT 3.68 M/mm3 (4.10-5.30); REDCELL DISTRIBUTION WIDTH-CV 14.6 % (11.5-14.5)
[2021-08-16 06:20] LABS: HEMATOCRIT 33.4 % (37.0-47.0)
[2021-08-16 06:26] LABS: CALCIUM 8.1 mg/dL (8.4-10.2); CREATININE, serum 0.85 mg/dL (0.57-1.11); MAGNESIUM 2.1 mg/dL (1.6-2.6); POTASSIUM 3.8 mmol/L (3.5-4.5)
[2021-08-16 07:21] VITALS: BP 127/73; PULSE 78; TEMP 97.4
--- NOTE | 2021-08-16 09:25 | NUR ---
Patient was assisted to patient room bathroom by myself and preceptor. Patient gait was unsteady at first, but was over all good. Patient is now in room recliner.
--- NOTE | 2021-08-16 10:03 | NUR ---
Follow-up visit; Patient thanked Project Development Engineer for checking on her this morning. Ayala is still not feeling as well as she would like. Project Development Engineer will continue to keep her in her prayers. Ayala's son, with whom Project Development Engineer has already spoken just arrived and thanked for visiting his mother.
[2021-08-16 11:07] VITALS: BP 118/55; PULSE 86; TEMP 98.3
--- NOTE | 2021-08-16 11:13 | NUR ---
Debt Management Counselor met with patient and her son to review discharge plan. SW discussed recommendation for SNF and patient is hesitant about this. SW discussed the benefits of SNF and encouraged patient that it is short term. Patient's son remarked that patient has been needed a lot of assistance to get out of her home, which is not normal for her. Patient is normally very independent. SW encouraged patient that the goal is to get her back to that level of independence. Patient verbalized understanding and agreed to let JOSE MANUEL send a referral to [facility] as she is a passport member. Patient is still deciding on SNF vs Home. JOSE MANUEL contacted Ami at [facility] and faxed referral. Ami advised they are able to accept. Discharge Plan: [facility] SNF vs Home
--- NOTE | 2021-08-16 12:24 | NUR ---
While preparing to administer patient fluids. Patient and son was having a conversation about finances. Patient would like to keep control over payments and other finacial needs. Son gave idea of letting him/siblings help her out with paying bills online. By patients comments it is not something she would like to do, she was hesitant, and did not seem fully comfortable discussing this topic. However, will think about potentially moving over to automatic withdraws with her bank where she can still know what is going on. "I trust my bank", comment by patient.
[2021-08-16 15:21] VITALS: BP 136/67; PULSE 89; TEMP 98.3
[2021-08-16] MEDS ORDERED: KLOR-CON SPRIN10 MEQ PO (15:23)
[2021-08-16] MEDS ORDERED: LASIX 20MG TABL20 MG PO (15:26)
[2021-08-16] MEDS ORDERED: NEURONTIN100 MG/CAP PO (15:26)
--- NOTE | 2021-08-16 19:11 | NUR ---
REPORT GIVEN TO MILDRED ALAS
[2021-08-16 20:18] VITALS: BP 158/61; PULSE 101; TEMP 98.5
[2021-08-17 00:23] VITALS: BP 125/53; PULSE 95; TEMP 98.6
[2021-08-17 04:15] VITALS: BP 134/68; PULSE 81; TEMP 98.2
[2021-08-17 06:00] LABS: BASO # 0.1 K/mm3 (0.0-0.2); BASO % 0.6 % (0.0-2.0); EOS % 0.3 % (0.0-4.0); GRAN # 7.6 K/mm3 (1.4-6.5); GRAN % 83.3 % (42.2-75.2); LYMPH # 0.7 K/mm3 (1.2-3.4); MEAN CELL VOLUME 91 fl (80.0-100.0); MEAN CORPUSCULAR HEMOGLOBIN 31 pg (27-31); MEAN CORPUSCULAR HGB CONC 33 g/dl (33.0-37.0); MONO # 0.6 K/mm3 (0.1-0.6); MONO % 6.9 % (1.7-9.3); PLATELET COUNT 176 K/mm3 (130-400); REDCELL DISTRIBUTION WIDTH-CV 14.8 % (11.5-14.5)
[2021-08-17 06:10] LABS: HEMATOCRIT 32.9 % (37.0-47.0)
--- NOTE | 2021-08-17 06:10 | NUR ---
ASSESSMENT COMPLETE FOR THIS SHIFT. PT IN BED SLEEPING WITH SON BY HER SIDE. PT COMPLAINED OF BACK PAIN. PT GIVEN NORCO FOR PAIN. PAIN MED WAS EFFECTIVE. PT DENIED PALPITATIONS, SOB, N,V,D OR DIZZINESS. OTHER THEN HELP TO THE RESTROOM, PT EXPRESSED NO OTHER NEEDS AT THIS TIME. CALL LIGHT WITHIN REACH.
[2021-08-17 06:26] LABS: CALCIUM 7.6 mg/dL (8.4-10.2); CREATININE, serum 0.79 mg/dL (0.57-1.11); POTASSIUM 3.4 mmol/L (3.5-4.5)
[2021-08-17 07:18] VITALS: BP 154/78; PULSE 91; TEMP 98.3
--- NOTE | 2021-08-17 08:55 | NUR ---
PT LAYING SUPINE IN BED ON ROOM AIR. PT STATES THAT SHE IS HAVING A LOT OF BACK PAIN. I INFORMED PT THAT SHE IS GOING TO BE GOING DOWN FOR THE EGD ANY MINUTE AND I AM UNABLE TO GIVE HER ANY MEDICATION FOR THE PAIN. I DID GET HER A WARM BLANKET AND ASSISTED HER TO REPOSITION IN THE BED. PT STATES NO OTHER NEEDS AT THIS TIME. "OK, ILL JUST WAIT FOR MY SURGERY THEN." CALL LIGHT IS WITHIN REACH.
--- NOTE | 2021-08-17 10:15 | NUR ---
assisted up to bedside commode with assitance of CNAs, endoscopy here to take patient for procedure
[2021-08-17 11:19] VITALS: BP 124/57; PULSE 107; TEMP 98.4
--- NOTE | 2021-08-17 14:16 | NUR ---
Gas Meter Checker faxed clinical updates to [facility].
[2021-08-17 15:25] VITALS: BP 146/58; PULSE 89; TEMP 97.9
--- NOTE | 2021-08-17 18:24 | NUR ---
PT RESTING QUIETLY IN BED WITH 2LIT VIA NC. PT STATES NO PAIN OR NEEDS AT THIS TIME. CALL LIGHT IS WITHIN REACH.
[2021-08-17 20:07] VITALS: BP 159/78; PULSE 93; TEMP 98.5
[2021-08-18 00:24] VITALS: BP 131/64; PULSE 81; TEMP 98.4
[2021-08-18 04:19] VITALS: BP 128/59; PULSE 81; TEMP 97.4
--- NOTE | 2021-08-18 06:10 | NUR ---
ASSESSMENT COMPLETE FOR THIS SHIFT. PT RESTING IN BED NAPPING. PT DENIED PAIN, PALPITATIONS, SOB, N,V,D OR DIZZINESS. PT HAD AN UNEVENTFUL NIGHT. PT EXPRESSED NO OTHER NEEDS AT THIS TIME. CALL LIGHT WITHIN REACH.
[2021-08-18 06:31] LABS: CALCIUM 7.8 mg/dL (8.4-10.2); CREATININE, serum 0.71 mg/dL (0.57-1.11); POTASSIUM 3.7 mmol/L (3.5-4.5)
[2021-08-18 06:43] LABS: BASO % 0.4 % (0.0-2.0); EOS % 0.5 % (0.0-4.0); GRAN % 78.9 % (42.2-75.2); HEMOGLOBIN 10.9 g/dl (12.5-16.0); LYMPH # 0.8 K/mm3 (1.2-3.4); MEAN CELL VOLUME 94 fl (80.0-100.0); MEAN CORPUSCULAR HEMOGLOBIN 30 pg (27-31); MEAN CORPUSCULAR HGB CONC 32 g/dl (33.0-37.0); MEAN PLATELET VOLUME 9.8 fl (7.4-10.4); MONO # 0.7 K/mm3 (0.1-0.6); MONO % 9.3 % (1.7-9.3); PLATELET COUNT 189 K/mm3 (130-400); RED BLOOD COUNT 3.62 M/mm3 (4.10-5.30); REDCELL DISTRIBUTION WIDTH-CV 14.9 % (11.5-14.5)
[2021-08-18 06:44] LABS: HEMATOCRIT 34.1 % (37.0-47.0)
[2021-08-18 07:25] VITALS: BP 130/99; PULSE 79; TEMP 98.4
--- NOTE | 2021-08-18 07:49 | NUR ---
PT LAYING SUPINE IN BED ON 2 LIT VIA NC. PT STATES THAT SHE IS "FEELING A LOT BETTER AND GETTING HER STRENGTH BACK." "IT IS JUST GOING TO TAKE ME SOME TIME TO BE BACK WHERE I WAS." PT HAS CONCERNS ABOUT GOING TO A SNF, STATING "I KNOW WHAT THOSE PLACES ARE LIKE, I WAS IN ONE WITH MY AND THEY ARE NOT GOING TO BE ABLE TO HELP ME. THEY DONT EVEN HAVE COMFY CHAIRS TO SIT IN." "IT IS JUST MORE CONVENIENT FOR MY SONS IF I GO THERE." INFORMED PT THAT THE DRS WILL BE IN TODAY SOMETIME TO SPEAK TO HER. PT STATES "I CAN'T EVEN GET A WORD IN WHEN THEY COME IN." I INFOMRED PT THAT I WOULD DO MY BEST TO BE IN THE ROOM WHEN THEY DO THEIR ROUNDINGS AND I WOULD MAKE SURE THAT I LET THEM KNOW THAT SHE HAS SOME CONCERNS AND SHE HAS AN OPPROTUNITY TO TALK TO THEM AND MAKE SURE SHE IS HEARD. PT STATES STATES APPRECIATION. PT ALSO STATES THAT SHE WOULD LIKE A SPRITE AND CUP OF ICE. ITEMS WERE GOTTEN FOR PT. PT STATES THAT SHE JUST NEEDS SOME BREAKFAST. PT KEEPS TRYING TO CALL THE KITCHEN BUT THE LINE HAS BEEN BUSY FOR A WHILE. ENCOURAGED PT TO KEEP TRYING. PT STATES NO OTHER NEEDS AT THIS TIME. CALL LIGHT IS WITHIN REACH.
[2021-08-18] MEDS ORDERED: LIPITOR 10MG10 MG PO (10:48)
[2021-08-18] MEDS ORDERED: OMEGA-3 1000 MG1 CAP PO (10:50)
[2021-08-18] MEDS ORDERED: ASPIRIN E.C. 8181 MG PO (10:50)
[2021-08-18] MEDS ORDERED: NEURONTIN100 MG/CAP PO (10:52)
[2021-08-18] MEDS ORDERED: TYLENOL 325MG325 MG PO (10:52)
[2021-08-18] MEDS ORDERED: MOBIC 7.5MG7.5 MG PO (10:52)
[2021-08-18] MEDS ORDERED: ZOFRAN 4MG T4 MG/TAB PO (10:53)
[2021-08-18] MEDS ORDERED: GLUCOPHAGE500 MG/TAB PO (10:53)
[2021-08-18] MEDS ORDERED: KLOR-CON SPRIN10 MEQ PO (10:53)
[2021-08-18] MEDS ORDERED: LASIX 20MG TABL20 MG PO (10:53)
[2021-08-18] MEDS ORDERED: MYCELEX10 MG/TAB MM (10:54)
[2021-08-18] MEDS ORDERED: MIRALAX PA17 GM/Dose PO (10:55)
[2021-08-18 11:09] VITALS: BP 140/67; PULSE 84; TEMP 98.2
--- NOTE | 2021-08-18 13:32 | NUR ---
SPOKE TO GUMARO AT [facility] AND GAVE REPORT. ALL QUESTIONS WERE ANSWERED. CALL BCK NUMBER WAS LEFT INCASE ANY OTHER INFORMATION WAS NEEDED.
--- NOTE | 2021-08-18 13:58 | NUR ---
Notified by care team that the patient is ready to discharge.set up worker met with patient to discuss discharge plan. Patients two sons present at bedside. Patient decided that she is going to go to [facility] SNF. Informed them that at this time she is medically clear to discharge. Patient and sons are in agreement with plan. Clinical updates and discharge orders faxed to [facility] at [facility]. Covid swab requested. [facility]quis states that they can be here 1330 to pick the patient up. Patient, family and RN notified. Discharge plan: [facility]
== END 2021-08-18 13:20 | DRG 392 ==
LOC: COL.ER 17:17 → MEDICAL 20:54 → COL.ER 20:54 → MEDICAL 08-17 08:03
PROVIDERS: Internal Medicine Gastroenterology; Nurse Practitioner; Physician Assistant; Student in an Organized Health Care Education/Training Program; ADMIT Student in an Organized Health Care Education/Training Program
PROC: 0DB78ZX Excision of Stomach, Pylorus, Via Natural or Artificial Opening Endoscopic, Diagnostic (ICD-10-PCS; principal; 2021-08-17 09:00)
DX: R11.2 Nausea with vomiting, unspecified (principal); N12 Tubulo-interstitial nephritis, not specified as acute or chronic; B37.0 Candidal stomatitis; N05.9 Unspecified nephritic syndrome with unspecified morphologic changes; I10 Essential (primary) hypertension; E11.9 Type 2 diabetes mellitus without complications; I51.9 Heart disease, unspecified; R13.10 Dysphagia, unspecified; Z20.822 Contact with and (suspected) exposure to COVID-19; Z66 Do not resuscitate; E87.6 Hypokalemia; G89.29 Other chronic pain; G25.0 Essential tremor; M54.9 Dorsalgia, unspecified; E78.5 Hyperlipidemia, unspecified; R53.81 Other malaise; Z90.710 Acquired absence of both cervix and uterus; Z79.82 Long term (current) use of aspirin; Z79.84 Long term (current) use of oral hypoglycemic drugs
CPT/HCPCS: 99223-AI; 99232-AI; 99239; J0696; J1650; J1815; J1940; J2270; J2405; J2704; J3475; J3480; J7030; Q9967

== ENCOUNTER → 2021-08-21 | Outpatient (CLI) | payer MEDICARE, BC ==
[~2021-08-21] MED LIST changes: +KLOR-CON SPRIN10 MEQ PO; +MIRALAX PA17 GM/Dose PO; +MYCELEX10 MG/TAB MM; +NEURONTIN100 MG/CAP PO
[2021-08-21 12:37] LABS: COLLECTION METHOD CLEAN CATCH
[2021-08-21 12:40] LABS: MUCOUS Present (NOT PRESENT); PH 7 (5-8); URINE APPEARANCE Hazy (CLEAR/HAZY); URINE BACTERIA Rare /hpf (NONE SEEN); URINE BILIRUBIN Negative (NEGATIVE); URINE BLOOD Negative (NEGATIVE); URINE COLOR Yellow (YELLOW); URINE GLUCOSE Negative (NEGATIVE); URINE KETONE 1+ (NEGATIVE); URINE LEUKOCYTE ESTERASE Negative (NEGATIVE); URINE NITRATE Negative (NEGATIVE); URINE PROTEIN(semi-quant) Negative (NEGATIVE); URINE UROBILINOGEN >=4.0 (NEGATIVE)
[2021-08-21 12:41] LABS: HEMOGLOBIN 11.9 g/dl (12.5-16.0); MEAN CELL VOLUME 91 fl (80.0-100.0); MEAN CORPUSCULAR HEMOGLOBIN 31 pg (27-31); MEAN CORPUSCULAR HGB CONC 34 g/dl (33.0-37.0); MEAN PLATELET VOLUME 9.2 fl (7.4-10.4); PLATELET COUNT 305 K/mm3 (130-400); RED BLOOD COUNT 3.87 M/mm3 (4.10-5.30); REDCELL DISTRIBUTION WIDTH-CV 14.5 % (11.5-14.5)
[2021-08-21 12:42] LABS: HEMATOCRIT 35.3 % (37.0-47.0)
[2021-08-21 12:57] LABS: ALBUMIN 2.3 gm/dL (3.4-4.8); BILIRUBIN,TOTAL 1.1 mg/dL (0.2-1.2); CREATININE, serum 0.72 mg/dL (0.57-1.11); POTASSIUM 4.2 mmol/L (3.5-4.5); TOTAL PROTEIN 5.6 gm/dL (6.2-8.1)
== END ==
LOC: ZCOL.LAB 12:29
PROVIDERS: Internal Medicine
DX: N18.9 Chronic kidney disease, unspecified (principal); R50.9 Fever, unspecified; Z20.822 Contact with and (suspected) exposure to COVID-19

== ENCOUNTER → 2021-10-25 | Outpatient (CLI) | payer MEDICARE, BC | LOC: COL.RAD 07:48 | DX: R68.81 Early satiety (principal) | CPT/HCPCS: A9541 ==

== ENCOUNTER → 2021-10-26 | Outpatient (CLI) | payer MEDICARE, BC | LOC: COL.RAD 10:17 | DX: K76.0 Fatty (change of) liver, not elsewhere classified (principal) ==

== ENCOUNTER 2021-11-03 10:55 | Emergency (ER) | payer MEDICARE, BC ==
[~2021-11-03] VITALS: Ht 156.2 cm; Wt 72.7 kg
[2021-11-03 12:07] LABS: MEAN CELL VOLUME 95 fl (80.0-100.0); MEAN CORPUSCULAR HEMOGLOBIN 31 pg (27-31); MEAN CORPUSCULAR HGB CONC 33 g/dl (33.0-37.0); MEAN PLATELET VOLUME 9.3 fl (7.4-10.4); PLATELET COUNT 213 K/mm3 (130-400); RED BLOOD COUNT 3.56 M/mm3 (4.10-5.30); REDCELL DISTRIBUTION WIDTH-CV 15.5 % (11.5-14.5)
[2021-11-03 12:13] LABS: HEMATOCRIT 33.7 % (37.0-47.0)
[2021-11-03 12:19] LABS: ALBUMIN 2.7 gm/dL (3.4-4.8); BILIRUBIN,TOTAL 0.6 mg/dL (0.2-1.2); CALCIUM 9.1 mg/dL (8.4-10.2); CREATININE, serum 0.92 mg/dL (0.57-1.11); POTASSIUM 3.5 mmol/L (3.5-4.5); TOTAL PROTEIN 6.8 gm/dL (6.2-8.1)
[2021-11-03 12:28] LABS: BAND 22 % (0-10); LYMPHOCYTE 7 % (20.0-51.0); NEUTROPHILS 69 % (42.0-75.2)
[2021-11-03 16:55] VITALS: BP 130/80; PULSE 129; TEMP 101.5
== END 2021-11-03 16:59 | disposition short-term general hospital (02) ==
LOC: COL.ER 10:55
PROVIDERS: Emergency Medicine
DX: A41.9 Sepsis, unspecified organism (principal); M46.46 Discitis, unspecified, lumbar region
CPT/HCPCS: J0696; J1170; J2270; J3370; J7030; J7050; J7120; Q9967